=== PATIENT | male | born 1970 | race Two or more races ===

== ENCOUNTER 2024-11-03 17:23 | Emergency (ER) | payer OTHER ==
[~2024-11-03] VITALS: Ht 162.6 cm; Wt 85.9 kg
[2024-11-03 19:32] VITALS: BP 124/82; PULSE 71; RESP 17; TEMP 97.2; O2SAT 97
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
[2024-11-03] MEDS ORDERED: ACET500T58 PO (19:49)
[2024-11-03] MEDS ORDERED: CYCL-837 PO (19:49)
--- NOTE | 2024-11-03 20:12 | DVH ---
Procedure: CT CERVICAL WITHOUT CONTRAST 11/03/2024 07:37 PM Indication: neck pain Comparison Study: None. Technique: Axial images were obtained and reformatted in coronal and sagittal planes. All CT scans at this medical facility are performed using dose modulation techniques as appropriate t o a performed exam including the following: Automated exposure control was utilized; adjustment of th e MA and/or KV according to patient size; and use of iterative reconstruction technique. CT Dose: CTDI volume is 24.74 mGy. Dose-length product is 574.64 mGy*cm FINDINGS: Bones: The vertebrae are normal in height. Normal alignment of the vertebrae. Lateral masses C1 and C2 are well aligned. The posterior facet joints are well aligned. Spaces are maintained. Discogenic e ndplate changes are seen at several levels. Ossification of the posterior longitudinal ligament 6 lev el resulting in mild central canal stenosis. Soft tissues: Paraspinal and prevertebral soft tissues are within normal limits. IMPRESSION: 1. Straightening of normal lordosis that could be positional, reflect muscle spasm or pain. Correlate clinically. 2. No acute osseous abnormality. 3. Multilevel degenerative changes of the cervical spine.
--- NOTE | 2024-11-03 20:15 | DVH ---
CLINICAL INDICATION: lumbar back pain TECHNIQUE: 2 radiographic views of the lumbar spine were obtained. Comparison: None FINDINGS/IMPRESSION: There is no evidence of acute fracture or dislocation. Large stool burden throughout the colon without findings to suggest obstruction. The visualized joint space is well maintained. The alignment is anatomical. There is no radiopaque foreign body.
--- NOTE | 2024-11-03 20:39 | DVH ---
CLINICAL INDICATION: right shoulder pain TECHNIQUE: 3 radiographic views of the right shoulder were obtained. Comparison: None FINDINGS/IMPRESSION: There is no evidence of acute fracture or dislocation. The visualized joint space is well maintained. The alignment is anatomical. Nonspecific 9 mm density within the right deltoid muscle which may represent nonspecific soft tissue calcification.
== END 2024-11-03 20:57 | disposition home or self-care (01) ==
LOC: ER 17:23
DX: S16.1XXA Strain of muscle, fascia and tendon at neck level, initial encounter (principal); S39.012A Strain of muscle, fascia and tendon of lower back, initial encounter; S46.911A Strain of unspecified muscle, fascia and tendon at shoulder and upper arm level, right arm, initial encounter; E78.5 Hyperlipidemia, unspecified; Z79.899 Other long term (current) drug therapy; Z90.49 Acquired absence of other specified parts of digestive tract; V43.52XA Car driver injured in collision with other type car in traffic accident, initial encounter; Y93.89 Activity, other specified; Y92.89 Other specified places as the place of occurrence of the external cause; Y99.8 Other external cause status
CPT/HCPCS: 72100; 72125; 73030